=== PATIENT | male | born 1995 | race Two or more races ===

== ENCOUNTER 2023-11-26 19:57 | Emergency (ER) | payer OTHER ==
[~2023-11-26] VITALS: Ht 175.3 cm; Wt 95.3 kg
[2023-11-26 21:30] LABS: HEMATOCRIT 46.2 % (39.0-48.0); HEMOGLOBIN 15.7 g/dL (13-16.00); MEAN CELL VOLUME 87.1 fL (80.0-100.00); MEAN CORPUSCULAR HEMOGLOBIN 29.5 pg (27.00-32.0); MEAN CORPUSCULAR HGB CONC 33.9 g/dl (32.0-36.0); PLATELET COUNT 384 K/uL (150-450); RED BLOOD COUNT 5.31 M/uL (4.00-6.00); RED CELL DISTRIBUTION WIDTH 13.3 % (11.5-14.5)
[2023-11-26 21:42] LABS: INR 0.95; PARTIAL THROMBOPLASTIN TIME 25.8 SECONDS (22.0-34.0)
[2023-11-26 21:48] LABS: ALBUMIN 4.4 gm/dL (3.4-5.0); BILIRUBIN TOTAL 0.46 mg/dL (0.3-1.2); CALCIUM 9.8 mg/dL (8.5-10.1); CREATININE SERUM 1.03 mg/dL (0.70-1.30); GFR 84.79; GLOBULINA 3.6 G/DL (2.4-3.5); POTASSIUM 4.24 mEq/L (3.5-5.1)
[2023-11-26 23:56] LABS: PH,URINE 6.5 (5.0-8.0); URINE APPEARANCE Clear; URINE BILIRRUBIN Negative (NEGATIVE); URINE BLOOD Negative; URINE COLOR Yellow; URINE GLUCOSE Negative (NEGATIVE); URINE LEUKOCYTE Negative; URINE NITRATE Negative; URINE PROTEIN Trace (NEGATIVE); URINE UROBILINOGEN 0.2 E.U./dl
[2023-11-26 23:59] LABS: URINE EPITHELIAL CELLS 2.3 uL (0.0-38.8)
[2023-11-27 00:01] LABS: URINE BACTERIA 2.5 uL (0.0-1933); URINE RBC 0.8 uL (0.0-20.8); URINE WBC 1.2 uL (0.0-23.2)
[2023-11-27 06:52] LABS: ABG PH 7.404 (7.35-7.45); ABG PO2 94.1 mmHg (80-100); ABG pCO2 39.4 mmHg (35-45); BASE EXCESS -0.5 mmol/l; BICARBONATE 24.1 mmol/l (23-25); SaO2 97.3 %; Tco2 25.3 mmol/l; o2 21 %
[2023-11-27 06:53] LABS: allen test SATISFACTORY; puncture site RADIAL RIGHT
[2023-11-27 10:57] LABS: HEMATOCRIT 47.8 % (39.0-48.0); HEMOGLOBIN 16.3 g/dL (13-16.00); MEAN CORPUSCULAR HEMOGLOBIN 29.7 pg (27.00-32.0); MEAN CORPUSCULAR HGB CONC 34.2 g/dl (32.0-36.0); PLATELET COUNT 405 K/uL (150-450); RED BLOOD COUNT 5.49 M/uL (4.00-6.00); RED CELL DISTRIBUTION WIDTH 13.3 % (11.5-14.5)
[2023-11-27 11:27] LABS: CALCIUM 9.3 mg/dL (8.5-10.1); CREATININE SERUM 1.01 mg/dL (0.70-1.30); GFR 86.73; POTASSIUM 3.65 mEq/L (3.5-5.1)
== END 2023-11-27 17:00 | disposition left against medical advice (07) ==
LOC: ER 19:59
PROVIDERS: General Practice
DX: I63.9 Cerebral infarction, unspecified (principal); Z20.822 Contact with and (suspected) exposure to COVID-19; Z91.018 Allergy to other foods
CPT/HCPCS: 70450; 70551; 71045; 82803; 96365; 96366; 99284; J2930; J7030; 70552